=== PATIENT | female | born 1990 | race American Indian/Alaskan Native ===

== ENCOUNTER 2021-07-08 11:48 | Emergency (ER) | payer SELFPAY ==
[2021-07-08 11:58] VITALS: BP 118/66
== END 2021-07-08 16:18 | disposition left against medical advice (07) ==
LOC: ED 11:48
DX: Z76.0 Encounter for issue of repeat prescription (principal); Z53.21 Procedure and treatment not carried out due to patient leaving prior to being seen by health care provider